=== PATIENT | male | born 1950 | race Caucasian/White ===

== ENCOUNTER 2020-07-16 10:37 | Inpatient (IN) | payer OTHER, MEDICAID ==
[~2020-07-16] VITALS: Ht 170.2 cm; Wt 94.0 kg
[2020-07-20] MEDS ORDERED: ZOLPIDEM TARTRATE 10 MG TABLET PO PRN (19:30)
[2020-07-20] MEDS ORDERED: LORazepam 2 MG TABLET PO PRN (19:30)
[2020-07-20] MEDS ORDERED: HALOPERIDOL 5 MG TABLET PO PRN (19:30)
[2020-07-20] MEDS ORDERED: PNEUMOCOCCAL VACCINE POLYVALENT 0.5 ML VIAL [PPSV23] IM ONE (19:45)
[2020-07-20] MEDS ORDERED: INFLUENZA VIRUS VACCINE QVS 2020-21 (6MO+)/PF 60 MCG/0.5 ML SYRINGE IM ONE (19:45)
[2020-07-20 19:50] VITALS: BP 130/82
[2020-07-20] MEDS: ARIPiprazole 15 MG TABLET PO SCH (20:43)
[2020-07-20] MEDS: FLUoxetine HCL 20 MG CAPSULE PO SCH (20:44)
[2020-07-20] MEDS: MIRTAZAPINE 30 MG TABLET PO SCH (20:44)
[2020-07-20] MEDS: BusPIRone HCL 10 MG TABLET PO SCH (20:44)
[2020-07-21 06:38] LABS: BASOPHILS % (AUTO) 0.4 % (0.0-2.0); EOSINOPHILS % (AUTO) 1.2 % (1.0-6.0); HEMATOCRIT 41.5 % (41-53); HEMOGLOBIN 13.8 g/dL (13.5-17.5); LYMPHOCYTES # (AUTO) 2.3 K/uL (1.0-4.8); LYMPHOCYTES % (AUTO) 34.4 % (22.0-44.0); MEAN CORPUSCULAR HEMOGLOBIN 29.8 pg (26.0-34.0); MEAN CORPUSCULAR HGB CONC 33.3 G/dL (31.0-37.0); MEAN CORPUSCULAR VOLUME 90 fL (80-100); MONOCYTES # (AUTO) 0.8 K/uL (0.1-1.0); MONOCYTES % (AUTO) 11.9 % (2.0-9.0); NEUTROPHILS # (AUTO) 3.4 K/uL (1.8-7.7); NEUTROPHILS % (AUTO) 52.1 % (40.0-70.0); PLATELET COUNT (AUTO) 300 K/uL (150-450); RED BLOOD CELL COUNT(AUTO) 4.63 MIL/uL (4.50-5.90); RED CELL DISTRIBUTION WIDTH 14.1 % (11.5-14.5)
[2020-07-21] MEDS ORDERED: LOPERAMIDE HCL 2 MG CAPSULE PO PRN (07:00)
[2020-07-21] MEDS ORDERED: BACITRACIN 28 GM OINTMENT TP PRN (07:00)
[2020-07-21] MEDS ORDERED: MAG HYDROX/AL HYDROX/SIMETH ES 30 ML SUSPENSION UDCUP PO PRN (07:00)
[2020-07-21] MEDS ORDERED: BENZOCAINE/MENTHOL LOZENGE PO PRN (07:00)
[2020-07-21] MEDS ORDERED: ONDANSETRON HCL 4 MG TABLET PO PRN (07:00)
[2020-07-21] MEDS ORDERED: ALBUTEROL SULFATE HFA 90 MCG/PUFF 8 GM INHALER IH PRN (07:00)
[2020-07-21] MEDS ORDERED: DOCUSATE SODIUM 100 MG CAPSULE PO PRN (07:00)
[2020-07-21] MEDS ORDERED: CloNIDine HCL 0.1 MG TABLET PO PRN (07:00)
[2020-07-21] MEDS ORDERED: PETROLATUM,WHITE 28 GM JELLY TP PRN (07:00)
[2020-07-21] MEDS ORDERED: MAGNESIUM HYDROXIDE SUSPENSION 30 ML UDCUP PO PRN (07:00)
[2020-07-21] MEDS ORDERED: OMEPRAZOLE 20 MG CAPSULE PO PRN (07:00)
[2020-07-21 07:10] LABS: ALBUMIN 3.4 g/dL (3.4-5.0); BILIRUBIN,TOTAL 0.4 mg/dL (0.1-1.0); CALCIUM, TOTAL 9.6 mg/dL (8.8-10.5); CREATININE 1.35 mg/dL (0.60-1.30); POTASSIUM 4.3 mmol/L (3.5-5.1); THYROID STIMULATING HORMONE 1.53 uIU/mL (0.36-3.74)
[2020-07-21 08:00] VITALS: BP 119/76
[2020-07-21] MEDS: BusPIRone HCL 10 MG TABLET PO SCH ×4 (08:54→20:17)
[2020-07-21] MEDS: DOCUSATE SODIUM 100 MG CAPSULE PO SCH (08:55)
[2020-07-21] MEDS: FLUoxetine HCL 20 MG CAPSULE PO SCH ×2 (08:55→16:58)
[2020-07-21] MEDS: FAMOTIDINE 20 MG TABLET PO SCH (08:55)
[2020-07-21] MEDS: LISINOPRIL 10 MG TABLET PO SCH (08:55)
[2020-07-21] MEDS: APIXABAN 5 MG TABLET PO SCH ×2 (08:56→16:58)
[2020-07-21] MEDS: TRIAMCINOLONE 0.1% 15 GM CREAM TP SCH ×2 (08:57→16:57)
[2020-07-21 16:00] VITALS: BP 95/65
[2020-07-21] MEDS ORDERED: MAGNESIUM CITRATE 300 ML ORAL SOLUTION PO PRN (18:00)
[2020-07-21] MEDS: MIRTAZAPINE 30 MG TABLET PO SCH (20:17)
[2020-07-21] MEDS: ARIPiprazole 15 MG TABLET PO SCH (20:17)
[2020-07-22 08:00] VITALS: BP 123/75
[2020-07-22] MEDS: BusPIRone HCL 10 MG TABLET PO SCH ×4 (09:28→21:08)
[2020-07-22] MEDS: FLUoxetine HCL 20 MG CAPSULE PO SCH ×2 (09:28→16:29)
[2020-07-22] MEDS: FAMOTIDINE 20 MG TABLET PO SCH (09:28)
[2020-07-22] MEDS: TRIAMCINOLONE 0.1% 15 GM CREAM TP SCH ×2 (09:29→16:29)
[2020-07-22] MEDS: LISINOPRIL 10 MG TABLET PO SCH (09:29)
[2020-07-22] MEDS: DOCUSATE SODIUM 100 MG CAPSULE PO SCH (09:29)
[2020-07-22] MEDS: APIXABAN 5 MG TABLET PO SCH ×2 (09:29→16:29)
[2020-07-22] MEDS: BuPROPion HCL XL 150 MG ER TABLET PO SCH (13:27)
[2020-07-22] MEDS: MAGNESIUM CITRATE 300 ML ORAL SOLUTION PO PRN (14:32)
[2020-07-22 16:06] VITALS: BP 110/65
[2020-07-22] MEDS: ARIPiprazole 15 MG TABLET PO SCH (21:08)
[2020-07-22] MEDS: MIRTAZAPINE 30 MG TABLET PO SCH (21:08)
[2020-07-23 08:00] VITALS: BP 111/74
[2020-07-23] MEDS: FLUoxetine HCL 20 MG CAPSULE PO SCH ×2 (08:28→16:12)
[2020-07-23] MEDS: DOCUSATE SODIUM 100 MG CAPSULE PO SCH (08:28)
[2020-07-23] MEDS: FAMOTIDINE 20 MG TABLET PO SCH (08:28)
[2020-07-23] MEDS: APIXABAN 5 MG TABLET PO SCH ×2 (08:28→16:13)
[2020-07-23] MEDS: BusPIRone HCL 10 MG TABLET PO SCH ×4 (08:29→20:05)
[2020-07-23] MEDS: LISINOPRIL 10 MG TABLET PO SCH (08:29)
[2020-07-23] MEDS: TRIAMCINOLONE 0.1% 15 GM CREAM TP SCH ×2 (08:30→16:13)
[2020-07-23] MEDS: BuPROPion HCL XL 150 MG ER TABLET PO SCH (08:30)
[2020-07-23 16:00] VITALS: BP 121/50
[2020-07-23] MEDS: MIRTAZAPINE 30 MG TABLET PO SCH (20:05)
[2020-07-23] MEDS: ARIPiprazole 15 MG TABLET PO SCH (20:05)
[2020-07-24 08:00] VITALS: BP 118/64
[2020-07-24] MEDS: LISINOPRIL 10 MG TABLET PO SCH (08:37)
[2020-07-24] MEDS: DOCUSATE SODIUM 100 MG CAPSULE PO SCH (08:37)
[2020-07-24] MEDS: BusPIRone HCL 10 MG TABLET PO SCH ×4 (08:38→20:55)
[2020-07-24] MEDS: FAMOTIDINE 20 MG TABLET PO SCH (08:38)
[2020-07-24] MEDS: APIXABAN 5 MG TABLET PO SCH ×2 (08:38→16:20)
[2020-07-24] MEDS: FLUoxetine HCL 20 MG CAPSULE PO SCH ×2 (08:38→16:20)
[2020-07-24] MEDS: TRIAMCINOLONE 0.1% 15 GM CREAM TP SCH ×2 (08:39→16:20)
[2020-07-24] MEDS: BuPROPion HCL XL 150 MG ER TABLET PO SCH (08:39)
[2020-07-24 15:16] VITALS: BP 118/84
[2020-07-24] MEDS: ACETAMINOPHEN 325 MG TABLET PO PRN (15:16)
[2020-07-24 16:00] VITALS: BP 119/67
[2020-07-24] MEDS: ARIPiprazole 15 MG TABLET PO SCH (20:55)
[2020-07-24] MEDS: MIRTAZAPINE 30 MG TABLET PO SCH (20:55)
[2020-07-25] MEDS: LISINOPRIL 10 MG TABLET PO SCH (09:09)
[2020-07-25] MEDS: APIXABAN 5 MG TABLET PO SCH ×2 (09:10→16:24)
[2020-07-25] MEDS: DOCUSATE SODIUM 100 MG CAPSULE PO SCH (09:10)
[2020-07-25] MEDS: BuPROPion HCL XL 150 MG ER TABLET PO SCH (09:10)
[2020-07-25] MEDS: BusPIRone HCL 10 MG TABLET PO SCH ×4 (09:10→20:54)
[2020-07-25] MEDS: TRIAMCINOLONE 0.1% 15 GM CREAM TP SCH ×2 (09:11→16:24)
[2020-07-25] MEDS: FLUoxetine HCL 20 MG CAPSULE PO SCH ×2 (09:11→16:24)
[2020-07-25] MEDS: FAMOTIDINE 20 MG TABLET PO SCH (09:11)
[2020-07-25 15:50] LABS: COVID AG,FIA SOURCE NASOPHARYNGEAL
[2020-07-25 16:00] VITALS: BP 120/79
[2020-07-25] MEDS: MIRTAZAPINE 30 MG TABLET PO SCH (20:54)
[2020-07-25] MEDS: ARIPiprazole 15 MG TABLET PO SCH (20:54)
[2020-07-26] MEDS: LISINOPRIL 10 MG TABLET PO SCH (08:14)
[2020-07-26] MEDS: BuPROPion HCL XL 150 MG ER TABLET PO SCH (08:14)
[2020-07-26] MEDS: FLUoxetine HCL 20 MG CAPSULE PO SCH ×2 (08:14→16:10)
[2020-07-26] MEDS: APIXABAN 5 MG TABLET PO SCH ×2 (08:15→16:10)
[2020-07-26] MEDS: DOCUSATE SODIUM 100 MG CAPSULE PO SCH (08:15)
[2020-07-26] MEDS: BusPIRone HCL 10 MG TABLET PO SCH ×4 (08:15→20:54)
[2020-07-26] MEDS: FAMOTIDINE 20 MG TABLET PO SCH (08:15)
[2020-07-26] MEDS: TRIAMCINOLONE 0.1% 15 GM CREAM TP SCH ×2 (09:04→16:10)
[2020-07-26 10:42] VITALS: BP 119/76
[2020-07-26] MEDS: ACETAMINOPHEN 325 MG TABLET PO PRN (12:39)
[2020-07-26 16:36] VITALS: BP 108/64
[2020-07-26] MEDS: MIRTAZAPINE 15 MG TABLET PO SCH (20:54)
[2020-07-26] MEDS: ARIPiprazole 15 MG TABLET PO SCH (20:54)
[2020-07-26] MEDS ORDERED: MIRTAZAPINE 30 MG TABLET PO SCH (21:00)
[2020-07-27 08:23] VITALS: BP 122/78
[2020-07-27] MEDS: FLUoxetine HCL 20 MG CAPSULE PO SCH ×2 (08:54→16:17)
[2020-07-27] MEDS: DOCUSATE SODIUM 100 MG CAPSULE PO SCH (08:54)
[2020-07-27] MEDS: LISINOPRIL 10 MG TABLET PO SCH (08:54)
[2020-07-27] MEDS: BuPROPion HCL XL 150 MG ER TABLET PO SCH (08:55)
[2020-07-27] MEDS: BusPIRone HCL 10 MG TABLET PO SCH ×4 (08:55→20:19)
[2020-07-27] MEDS: APIXABAN 5 MG TABLET PO SCH ×2 (08:55→17:29)
[2020-07-27] MEDS: FAMOTIDINE 20 MG TABLET PO SCH (08:55)
[2020-07-27] MEDS: TRIAMCINOLONE 0.1% 15 GM CREAM TP SCH ×2 (08:57→16:17)
[2020-07-27 16:05] VITALS: BP 106/72
[2020-07-27] MEDS: ARIPiprazole 15 MG TABLET PO SCH (20:19)
[2020-07-27] MEDS: MIRTAZAPINE 15 MG TABLET PO SCH (20:19)
[2020-07-27 20:51] VITALS: BP 112/80
[2020-07-27] MEDS: ACETAMINOPHEN 325 MG TABLET PO PRN (20:51)
[2020-07-28 07:40] LABS: CHOL/HDL RATIO 5.5 (4.2-7.3)
[2020-07-28 07:52] LABS: HEMOGLOBIN A1C 5.7 % (3.8-5.6)
[2020-07-28 08:00] VITALS: BP 123/78
[2020-07-28] MEDS: APIXABAN 5 MG TABLET PO SCH ×2 (08:26→16:15)
[2020-07-28] MEDS: FLUoxetine HCL 20 MG CAPSULE PO SCH ×2 (08:26→16:15)
[2020-07-28] MEDS: FAMOTIDINE 20 MG TABLET PO SCH (08:27)
[2020-07-28] MEDS: LISINOPRIL 10 MG TABLET PO SCH (08:27)
[2020-07-28] MEDS: BusPIRone HCL 10 MG TABLET PO SCH ×4 (08:27→20:44)
[2020-07-28] MEDS: BuPROPion HCL XL 150 MG ER TABLET PO SCH (08:27)
[2020-07-28] MEDS: DOCUSATE SODIUM 100 MG CAPSULE PO SCH (08:27)
[2020-07-28] MEDS: TRIAMCINOLONE 0.1% 15 GM CREAM TP SCH ×2 (08:28→16:15)
[2020-07-28 16:26] VITALS: BP 108/75
[2020-07-28] MEDS: ARIPiprazole 15 MG TABLET PO SCH (20:44)
[2020-07-28] MEDS: MIRTAZAPINE 15 MG TABLET PO SCH (20:44)
[2020-07-29 08:00] VITALS: BP 135/84
[2020-07-29] MEDS: TRIAMCINOLONE 0.1% 15 GM CREAM TP SCH ×2 (08:35→16:32)
[2020-07-29] MEDS: FAMOTIDINE 20 MG TABLET PO SCH (08:35)
[2020-07-29] MEDS: DOCUSATE SODIUM 100 MG CAPSULE PO SCH (08:37)
[2020-07-29] MEDS: APIXABAN 5 MG TABLET PO SCH ×2 (08:37→16:32)
[2020-07-29] MEDS: BusPIRone HCL 10 MG TABLET PO SCH ×4 (08:37→20:34)
[2020-07-29] MEDS: FLUoxetine HCL 20 MG CAPSULE PO SCH ×2 (08:37→16:32)
[2020-07-29] MEDS: BuPROPion HCL XL 150 MG ER TABLET PO SCH (08:37)
[2020-07-29] MEDS: LISINOPRIL 10 MG TABLET PO SCH (08:37)
[2020-07-29] MEDS: MAGNESIUM CITRATE 300 ML ORAL SOLUTION PO PRN (10:16)
[2020-07-29 16:00] VITALS: BP 116/65
[2020-07-29] MEDS: MIRTAZAPINE 15 MG TABLET PO SCH (20:35)
[2020-07-29] MEDS: ARIPiprazole 15 MG TABLET PO SCH (20:35)
[2020-07-30] MEDS: TRIAMCINOLONE 0.1% 15 GM CREAM TP SCH (08:11)
[2020-07-30] MEDS: LISINOPRIL 10 MG TABLET PO SCH (08:11)
[2020-07-30] MEDS: BuPROPion HCL XL 150 MG ER TABLET PO SCH (08:12)
[2020-07-30] MEDS: FLUoxetine HCL 20 MG CAPSULE PO SCH ×2 (08:12→16:06)
[2020-07-30] MEDS: APIXABAN 5 MG TABLET PO SCH ×2 (08:12→16:06)
[2020-07-30] MEDS: BusPIRone HCL 10 MG TABLET PO SCH ×3 (08:12→16:06)
[2020-07-30] MEDS: FAMOTIDINE 20 MG TABLET PO SCH (08:12)
[2020-07-30] MEDS: DOCUSATE SODIUM 100 MG CAPSULE PO SCH (08:13)
[2020-07-30 08:27] VITALS: BP 127/53
[2020-07-30] MEDS ORDERED: BUPR-93 PO (10:07)
[2020-07-30] MEDS ORDERED: MIRT30 PO (10:07)
[2020-07-30] MEDS ORDERED: BUSP10TA23 PO (10:07)
[2020-07-30] MEDS ORDERED: APIX5TAB PO (10:07)
[2020-07-30] MEDS ORDERED: ARIP15TA2 PO (10:07)
[2020-07-30] MEDS ORDERED: FLUO-191 PO (10:07)
[2020-07-30] MEDS ORDERED: LISI-893 PO (10:07)
[2020-07-30] MEDS ORDERED: FAMO20 PO (10:07)
[2020-07-30] MEDS ORDERED: DOCU-275 PO (10:07)
[2020-07-30] MEDS ORDERED: TRIA15CR49 TP (10:07)
== END 2020-07-30 16:15 | disposition home or self-care (01) | DRG 885 ==
LOC: 3EX 07-20 17:20
PROVIDERS: ADMIT Psychiatry & Neurology Psychiatry; ATTEND Psychiatry & Neurology Psychiatry
DX: F33.2 Major depressive disorder, recurrent severe without psychotic features (principal); R45.851 Suicidal ideations; F60.3 Borderline personality disorder; I10 Essential (primary) hypertension; M19.90 Unspecified osteoarthritis, unspecified site; K21.9 Gastro-esophageal reflux disease without esophagitis; N40.0 Benign prostatic hyperplasia without lower urinary tract symptoms; E11.9 Type 2 diabetes mellitus without complications; K59.00 Constipation, unspecified; G47.00 Insomnia, unspecified; F42.9 Obsessive-compulsive disorder, unspecified; E66.9 Obesity, unspecified; F12.90 Cannabis use, unspecified, uncomplicated; F41.9 Anxiety disorder, unspecified; Z20.822 Contact with and (suspected) exposure to COVID-19; Z59.0 Homelessness; Z79.01 Long term (current) use of anticoagulants; Z79.899 Other long term (current) drug therapy; Z86.711 Personal history of pulmonary embolism; Z68.32 Body mass index [BMI] 32.0-32.9, adult; Z23 Encounter for immunization
CPT/HCPCS: 83036; 84436; 84443; 87081; 87426; 90686; 90732; G0378